=== PATIENT | male | born 1985 | race Caucasian/White ===

== ENCOUNTER 2019-03-30 19:40 | Emergency (ER) | payer MEDICAID ==
[~2019-03-30] VITALS: Ht 180.3 cm; Wt 84.1 kg
[2019-03-30 19:43] VITALS: Ht 180.3 cm; Wt 84.1 kg
[2019-03-30] MEDS ORDERED: HYDROCODON-ACE1 EAC7 PO (20:36)
[2019-03-30 21:30] VITALS: BP 132/86
== END 2019-03-30 21:20 | disposition home or self-care (01) ==
LOC: D.ER 19:40
DX: S61.012A Laceration without foreign body of left thumb without damage to nail, initial encounter (principal); W26.0XXA Contact with knife, initial encounter; Y93.89 Activity, other specified; Y92.89 Other specified places as the place of occurrence of the external cause

== ENCOUNTER 2019-11-29 09:16 | Emergency (ER) | payer MEDICAID ==
[~2019-11-29 09:16] MED LIST: HYDROCODON-ACE1 EAC7 PO
[2019-11-29 09:21] VITALS: Ht 180.3 cm
[2019-11-29] MEDS ORDERED: SMZ-TMP DS 800-1 TAB PO (09:35)
[2019-11-29] MEDS ORDERED: HYDROCODON-ACE1 EAC2 PO (09:35)
[2019-11-29 09:44] VITALS: BP 148/82
== END 2019-11-29 09:45 | disposition home or self-care (01) ==
LOC: D.ER 09:16
DX: L03.116 Cellulitis of left lower limb (principal)